=== PATIENT | male | born 1975 | race African-American/Black ===

== ENCOUNTER 2018-03-15 14:06 | Emergency (ER) | payer SELFPAY ==
[~2018-03-15] VITALS: Ht 188 cm; Wt 121.1 kg
[2018-03-15] MEDS ORDERED: Bacitracin Oint UD TOPIC ONE (14:30)
[2018-03-15] MEDS ORDERED: Bactrim-DS 1 tab ORAL ONE (14:30)
--- NOTE | 2018-03-15 14:33 | Emergency Room Report ---
History of Present Illness General Chief Complaint: Animal Bite Source: Patient Present Illness HPI Patient presents to the bump on his neck is painful. It's developed over the last few days. He has redness. He did not take any medication for this. He rates the pain is 10/10 and aching pressure and burning. Is also small bump below this on his neck under the skin. He denies any fevers or chills. There' s no nausea vomiting diarrhea or additional chest pain or or shortness of breath. His tetanus is less than 10 years. 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 Reviewed Nursing Documentation: PMH: Agreed; PSxH: Agreed Nursing Documentation-PMH Past Medical History: No Stated History Review of Systems All Other Systems: negative except mentioned in HPI Physical Exam Vital Signs Date Time Temp Pulse Resp B/P (MAP) Pulse Ox O2 Delivery O2 Flow Rate FiO2 03/15/18 14:10 98.2 97 20 125/85 96 Room Air 98.2 Sp02 EP Interpretation: reviewed, normal General Appearance: well appearing, no apparent distress, GCS 15 Head: normocephalic, atraumatic Eyes: bilateral eye normal inspection, bilateral eye PERRL ENT: hearing grossly normal, normal voice, moist mucus membranes Neck: full range of motion, supple, no meningismus, tender - Nodule right with erythema Respiratory: lungs clear, no respiratory distress, speaking full sentences Cardiovascular #1: regular rate, rhythm Cardiovascular #2: 2+ radial (R) Gastrointestinal: non tender, soft Musculoskeletal: back normal, digits/nails normal, gait/station normal, no calf tenderness Neurologic: alert, oriented x3, normal gait, grossly normal Psychiatric: mood/affect normal Skin: other - Erythema with nodule. There is no fluctuance. 1 cm diameter. Lymphatic: other - small node below lesion Medical Decision Making Diagnostic Impression: Primary Impression: Cutaneous infection neck Additional Impression: Cellulitis Qualified Codes: L03.221 - Cellulitis of neck ER Course Patient presents with erythematous nodule right neck. There is no fluctuance at this time and therefore there is no indication for incision and drainage. Topical antibiotics and oral antibiotics and analgesics are dictated. The patient will be given bacitracin, Bactrim, Motrin and Tylenol here. He is instructed to return if he feels that there is no improvement or worsening with prescribed treatment. Patient stable for outpatient observation and treatment. Last Vital Signs Date Time Temp Pulse Resp B/P (MAP) Pulse Ox O2 Delivery O2 Flow Rate FiO2 03/15/18 14:44 98.2 69 20 123/77 96 Room Air 208.8 Status: improved Disposition: HOME, SELF-CARE Condition: Improved Scripts Tramadol Hcl* (ULTRAM*) 50 Mg Tablet 50 MG ORAL Q6H PRN for For Pain, #12 TAB 0 Refills Prov: Zach Ernst M.D. 03/15/18 Ibuprofen* (MOTRIN*) 600 Mg Tablet 600 MG ORAL Q6H PRN for For Pain, #20 TAB Prov: Zach Ernst M.D. 03/15/18 Bacitracin (Bacitracin) 28.4 Gm Oint...g. 1 APPLIC TOPIC BID, #20 GM Prov: Zach Ernst M.D. 03/15/18 Trimethoprim/Sulfamethoxazole 160/800* (BACTRIM DS TABLET*) 1 Each Tablet 1 TAB ORAL Q12H, #14 TAB 0 Refills Prov: Zach Ernst M.D. 03/15/18 Zach Ernst M.D. Mar 15, 2018 14:33
[2018-03-15 14:34] VITALS: BP 123/77
[2018-03-15] MEDS ORDERED: IBUPROFEN600 MG ORAL (14:36)
[2018-03-15] MEDS ORDERED: BACTRIM DS TAB1 EAC1 ORAL (14:36)
[2018-03-15] MEDS ORDERED: TRAMADOL HCL50 MG ORAL (14:36)
[2018-03-15] MEDS ORDERED: BACITRACIN15 GM TOPIC (14:36)
[2018-03-15 14:44] VITALS: BP 123/77
== END 2018-03-15 14:44 | disposition home or self-care (01) ==
LOC: EMR 14:25
DX: L03.221 Cellulitis of neck (principal); Z88.0 Allergy status to penicillin
CPT/HCPCS: 99283

== ENCOUNTER 2018-03-20 15:11 | Emergency (ER) | payer SELFPAY ==
[~2018-03-20] VITALS: Ht 190.5 cm; Wt 125.2 kg
[~2018-03-20 15:11] MED LIST: BACITRACIN15 GM TOPIC; BACTRIM DS TAB1 EAC1 ORAL; IBUPROFEN600 MG ORAL; TRAMADOL HCL50 MG ORAL
[2018-03-20 15:32] VITALS: BP 145/102
--- NOTE | 2018-03-20 15:42 | Emergency Room Report ---
History of Present Illness General Chief Complaint: Skin Rash/Abscess Source: Patient Present Illness HPI 42-year-old male patient presents ER complaining of abscess on the back of his neck. Reports previous seen in ER 3 days ago for similar symptoms. Reports drainage from abscess since that time. Reports was not incised at that time. Patient wants to know "if it needs to be cut?". Denies fever, chest pain, shortness of breath. Denies worsening or spreading of infection. Allergies: Coded Allergies: PENICILLINS (Verified Allergy, Unknown, Hives, 03/15/18) Patient History Past Medical History: see triage record Reviewed Nursing Documentation: PMH: Agreed; PSxH: Agreed Nursing Documentation-PMH Past Medical History: No Stated History Review of Systems All Other Systems: negative except mentioned in HPI Physical Exam Vital Signs Date Time Temp Pulse Resp B/P (MAP) Pulse Ox O2 Delivery O2 Flow Rate FiO2 03/20/18 15:16 98.1 87 16 145/102 96 Room Air 98.1 Sp02 EP Interpretation: reviewed, normal General Appearance: well appearing, no apparent distress, alert, GCS 15, non- toxic Head: normocephalic, atraumatic Eyes: bilateral eye normal inspection, bilateral eye PERRL ENT: hearing grossly normal, normal pharynx, no angioedema, normal voice, uvula midline, moist mucus membranes Neck: full range of motion, no bony tend Respiratory: lungs clear, normal breath sounds, no rhonchi, no respiratory distress, no accessory muscle use, no wheezing, speaking full sentences Cardiovascular #1: regular rate, rhythm, no edema Musculoskeletal: back normal, digits/nails normal, gait/station normal, normal range of motion, non-tender Psychiatric: mood/affect normal Skin: other - right posterior neck: One centimeter abscess, indurated, dried pus, no fluctuance, no red streaking, no surrounding erythema or edema Lymphatic: no adenopathy Medical Decision Making PA Attestation Dr. Andrea is my supervising Physician whom patient management has been discussed with. Diagnostic Impression: Primary Impression: Wound check, abscess ER Course Pt. presents to the ED requesting wound check of abscess on posterior neck. Ddx considered but are not limited to cellulitis, abscess, wound check, folliculitis. Vital signs: are WNL, pt. is afebrile ER COURSE: Reviewed previous chart. Wound has no signs of infection., no erythema, edema, TTP, sensation is intact to light touch. 1 cm abscess, indurated, with dried pus, notably patient would benefit from I and D of abscess at this time. Seen by Dr. Andrea agrees with assessment and treatment plan. Warm compresses. Advised on proper wound care. Follow-up with primary care provider. DISCHARGE: Patient instructed to continue with medications per initial ER provider instructions. Does not need new medications at this time. At this time pt. is stable for d/c to home. Patient resting comfortably, in no acute distress, nontoxic appearing. Will provide printed patient care instructions and any necessary prescriptions. Care plan and follow up instructions have been discussed with the patient prior to discharge. Patient instructed to follow-up with primary care provider for further treatment and referral. Patient questions asked and answered. ER precautions given. Patient instructed to return to ER immediately for any new or worsening of symptoms including but not limited to fever, worsening of pain symptoms. - Please note that this Emergency Department Report was dictated using [employer] skills educator technology software, occasionally this can lead to erroneous entry secondary to interpretation by the dictation equipment. Last Vital Signs Date Time Temp Pulse Resp B/P (MAP) Pulse Ox O2 Delivery O2 Flow Rate FiO2 03/20/18 15:32 98.1 89 16 145/102 96 Room Air 98.1 Disposition: HOME, SELF-CARE Condition: Stable Patient Instructions: Abscess Additional Instructions: Followup with primary care provider in 3 -5 days. Apply warm compresses. Take ibuprofen for pain. Take medications as directed. Patient questions asked and answered. ER precautions given, patient instructed to return to ER immediately for any new or worsening of symptoms. Tristen Morel Mar 20, 2018 15:41
== END 2018-03-20 15:45 | disposition home or self-care (01) ==
LOC: EMR 15:40
DX: L02.11 Cutaneous abscess of neck (principal); Z88.0 Allergy status to penicillin
CPT/HCPCS: 99282